=== PATIENT | male | born 1955 | race Caucasian/White ===

== ENCOUNTER 2019-09-12 10:31 | Emergency (ER) | payer MEDICARE ==
[~2019-09-12] VITALS: Ht 180 cm; Wt 92.5 kg
[2019-09-12] MEDS ORDERED: HYDR25TA4 (10:52)
[2019-09-12] MEDS ORDERED: PRD10T (10:52)
[2019-09-12] MEDS ORDERED: LOVA20TA2 (10:52)
[2019-09-12] MEDS ORDERED: QUIN40TA14 (10:52)
--- OUTSIDE RECORDS SUMMARY | 2019-09-12 10:53 | XMS REPORT ---
Author Author John ADRIAN Organization [facility] Address [address] [place] [address] Care Team Providers Care Insurance Operations Rep Name Role Phone LUZ MARIA ADRIAN Unavailable PROBLEMS Type Condition ICD9-CM Code [id number] Code Onset Dates Condition S tatus SNOMED Code Problem Pure hypercholesterolemia E78.00 Acti ve [id number] Problem Benign essential HTN I10 Active [id number] ALLERGIES Substance Reaction Event Type Date Status Terbinafine Unknown Drug Allergy Apr, Active ENCOUNTERS Encounter Location Date Diagnosis [address] [address] Apr, Benign essential HTN I10 and Pure hyperc holesterolemia E78.00 [place] [address] [address] [facility] [id number] [address] [place] [phone] Apr, [address] [address] Apr, Benign essential HTN I10 [place] [address] [facility] [id number] [address] [place] [phone] Sep, 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.4 [place] [address] [address] [facility] [id number] [address] [place] [phone] Aug, Physical exam Z00.00 [facility] [address] [id number] [address] [place] [phone] Aug, Physical examination of empl oyee V70.5 [place] [address] [facility] [id number] [address] [place] [phone] Sep, IMMUNIZATIONS No Known Immunizations SOCIAL HISTORY Never Assessed REASON FOR VISIT etl database developer PLAN OF CARE VITAL SIGNS MEDICATIONS Medication Instructions Dosage Frequency Start Date End Date Duration S tatus Lovastatin 20 MG Orally Once a day 1 tablet with a meal 24h Active Aspirin 81 MG Orally Once a day 1 tablet 24h Active Loprox 0.77 % Externally Twice a day 1 application to affected area 12h Active Hydrochlorothiazide 25 MG TAKE 1 TABLET BY MOUTH ONCE DAILY. 30 Active Vitamin E 100 UNIT Orally Once a day 1 capsule 24h 3 0 day(s) Active Vitamin B Complex - as directed Active Skelaxin 800 MG Orally Three times a day 1 tablet 8h 30 day(s) Active Viagra 100 MG Orally Once a day 1 tablet as needed 24h 30 day(s) Active Magnesium 300 MG Orally Once a day 1 capsule with a meal 24h 30 day(s) Active Vitamin B-12 1000 MCG Orally Once a day 1 tablet 24h 30 day(s) Active Quinapril HCl 40 MG Orally Once a day 1 tablet 24h Active RESULTS No Results PROCEDURES No Known procedures INSTRUCTIONS MEDICATIONS ADMINISTERED No Known Medications MEDICAL (GENERAL) HISTORY Type Description Date Medical History Hypertension Medical History Hypercholesteremia Medical History Insomnia Medical History Sleep apnea Medical History Depressive disorder Surgical History broken arm as a kid Surgical History back surgery Surgical History knee surgery-meniscus repair Hospitalization History surgeries
--- OUTSIDE RECORDS SUMMARY | 2019-09-12 10:53 | XMS REPORT | Continuity of Care Document ---
Author Organization Unknown Address Unknown Phone Unavailable Allergies There is no data. Medications There is no data. Problems There is no data. Procedures There is no data. Results Test Result Range CBC - 04/11/18 10:45 WHITE BLOOD CELL COUNT 8.2 Thousand/uL 3 .8-10.8 RED BLOOD CELL COUNT 5.64 Million/uL 4.2 0-5.80 HEMOGLOBIN 17.2 g/dL 13.2-17.1 HEMATOCRIT 50.8 % 38.5-50.0 MCV 90.1 fL 80.0-100.0 MCH 30.5 pg 27.0-33.0 MCHC 33.9 g/dL 32.0-36.0 RDW 13.5 % 11.0-15.0 PLATELET COUNT 238 Thousand/uL 140-400 MPV 9.7 fL 7.5-12.5 ABSOLUTE NEUTROPHILS 5707 cells/uL 1500- 7800 ABSOLUTE LYMPHOCYTES 1402 cells/uL 850-3 900 ABSOLUTE MONOCYTES 820 cells/uL 200-950 ABSOLUTE EOSINOPHILS 197 cells/uL 15-500 ABSOLUTE BASOPHILS 74 cells/uL 0-200 NEUTROPHILS 69.6 % NRG LYMPHOCYTES 17.1 % NRG MONOCYTES 10.0 % NRG EOSINOPHILS 2.4 % NRG BASOPHILS 0.9 % NRG LIPID PANEL - 10/25/18 08:14 CHOLESTEROL, TOTAL 143 mg/dL <200 HDL CHOLESTEROL 32 mg/dL >40 TRIGLYCERIDES 168 mg/dL <150 LDL-CHOLESTEROL 84 mg/dL (calc) NRG CHOL/HDLC RATIO 4.5 (calc) <5.0 NON HDL CHOLESTEROL 111 mg/dL (calc) <13 0 CMP - 10/25/18 08:14 GLUCOSE 103 mg/dL 65-99 UREA NITROGEN (BUN) 19 mg/dL 7-25 CREATININE 0.95 mg/dL 0.70-1.25 eGFR NON-AFR. UZBEK 84 mL/min/1.73m2 > OR = 60 eGFR 98 mL/min/1.73m2 > OR = 60 BUN/CREATININE RATIO NOT APPLICABLE (calc) 6-22 SODIUM 141 mmol/L 135-146 POTASSIUM 4.0 mmol/L 3.5-5.3 CHLORIDE 103 mmol/L 98-110 CARBON DIOXIDE 32 mmol/L 20-32 CALCIUM 9.7 mg/dL 8.6-10.3 PROTEIN, TOTAL 6.7 g/dL 6.1-8.1 ALBUMIN 4.1 g/dL 3.6-5.1 GLOBULIN 2.6 g/dL (calc) 1.9-3.7 ALBUMIN/GLOBULIN RATIO 1.6 (calc) 1.0-2. 5 BILIRUBIN, TOTAL 0.6 mg/dL 0.2-1.2 ALKALINE PHOSPHATASE 74 U/L 40-115 AST 19 U/L 10-35 ALT 21 U/L 9-46 CBC - 10/25/18 08:14 WHITE BLOOD CELL COUNT 6.4 Thousand/uL 3 .8-10.8 RED BLOOD CELL COUNT 5.32 Million/uL 4.2 0-5.80 HEMOGLOBIN 16.5 g/dL 13.2-17.1 HEMATOCRIT 48.5 % 38.5-50.0 MCV 91.2 fL 80.0-100.0 MCH 31.0 pg 27.0-33.0 MCHC 34.0 g/dL 32.0-36.0 RDW 13.8 % 11.0-15.0 PLATELET COUNT 214 Thousand/uL 140-400 MPV 9.2 fL 7.5-12.5 ABSOLUTE NEUTROPHILS 4000 cells/uL 1500- 7800 ABSOLUTE LYMPHOCYTES 1478 cells/uL 850-3 900 ABSOLUTE MONOCYTES 614 cells/uL 200-950 ABSOLUTE EOSINOPHILS 269 cells/uL 15-500 ABSOLUTE BASOPHILS 38 cells/uL 0-200 NEUTROPHILS 62.5 % NRG LYMPHOCYTES 23.1 % NRG MONOCYTES 9.6 % NRG EOSINOPHILS 4.2 % NRG BASOPHILS 0.6 % NRG CBC w/MANUAL DIFF - 04/08/19 08:40 WHITE BLOOD CELL COUNT 6.6 Thousand/uL 3 .8-10.8 RED BLOOD CELL COUNT 5.24 Million/uL 4.2 0-5.80 HEMOGLOBIN 15.0 g/dL 13.2-17.1 HEMATOCRIT 45.7 % 38.5-50.0 MCV 87.2 fL 80.0-100.0 MCH 28.6 pg 27.0-33.0 MCHC 32.8 g/dL 32.0-36.0 RDW 13.1 % 11.0-15.0 PLATELET COUNT 314 Thousand/uL 140-400 MPV 9.5 fL 7.5-12.5 ABSOLUTE NEUTROPHILS 4646 cells/uL 1500- 7800 ABSOLUTE LYMPHOCYTES 1168 cells/uL 850-3 900 ABSOLUTE MONOCYTES 482 cells/uL 200-950 ABSOLUTE EOSINOPHILS 271 cells/uL 15-500 ABSOLUTE BASOPHILS 33 cells/uL 0-200 NEUTROPHILS 70.4 % NRG LYMPHOCYTES 17.7 % NRG MONOCYTES 7.3 % NRG EOSINOPHILS 4.1 % NRG BASOPHILS 0.5 % NRG Encounters ACCT No. Visit Date/Time Discharge Status Pt. Type Provider Facility Loc./Unit Complaint [id number] 08/29/2019 14:00:00 08/29/2019 23:59:[address] [facility] Outpatient LUZ MARIA ADRIAN [facility] [id number] 04/08/2019 08:20:00 Document Registration [id number] 10/25/2018 08:20:00 Document Registration [id number] 04/11/2018 10:45:00 Document Registration
--- OUTSIDE RECORDS SUMMARY | 2019-09-12 10:53 | XMS REPORT ---
Author John Leonard [facility] eClinicalWorks Address Unknown Phone Unavailable Care Team Providers Care Product Marketing Programs Manager Name Role Phone BRENDA MORRIS CP Unavailable Allergies, Adverse Reactions, Alerts Substance Reaction Event Type N.K.D.A. Info Not Available Non Drug Allergy Problems Problem Type Condition Code Onset Dates Condition Statu s Assessment Physical exam Z00.00 Active Problem Physical exam Z00.00 Active Medications Medication Code System Code Instructions Start Date End Date Status Dosage Lovastatin [facility] [address]-41 10 MG Orally Once a day 1 tablet with a meal Quinapril HCl [facility] [address]-22 20 MG Orally Once a day 1 tablet Aspirin [facility] [address]-72 81 MG Orally Once a day 1 tablet Procedures Procedure Coding System Code Date Office Visit, Est Pt., Level 4 CPT-4 33449 J [facility] 2015 URINALYSIS, AUTO, W/O SCOPE CPT-4 50806 August 28, 2015 Vital Signs Date/Time: August 28, 2015 Cardiac Monitoring Heart Rate 80 bpm Weight 198 lbs Height 71 in Blood Pressure Diastolic 84 mmHg Blood Pressure Systolic 110 mmHg Results No Known Results Summary Purpose eClinicalWorks Submission
--- NOTE | 2019-09-12 11:01 | ED Integumentary General ---
General Chief Complaint: Skin/Wound Problems Stated Complaint: LACERATION LOWER L LEG Nursing Triage Note: PT PRESENTS TO ED WITH COMPLAINTS OF L KNEE LAC AFTER HITTING IT ON A GALVENIZED PIPE WHEN LOADING SOMETHING INTO A DUMBSTER. Source: patient Exam Limitations: no limitations (AARON MCKEON) History of Present Illness Date Seen by Provider: Sep 12, 2019 Time Seen by Provider: 10:45 Initial Comments John Wood is a 63 year old man who was seen today due to a laceration inferior to his L knee. He reports he was loading a dumpster into a truck when he cut his leg on a galvanized pipe that was sticking out of the dumpster. He reports this occurred about 30 minutes before he arrived, on arrival his wound was wrapped in rags from home by his daughter who is a nurse. He received the tetanus vaccine in July of 2018. He denies having any pain from the laceration. He takes a daily baby aspirin, denies any history of diabetes or immunocompromise. Denies any pain or numbness in his leg or anywhere else, denies having any fever or chills. Timing/Duration: just prior to arrival Severity: mild Location: extremities Possible Cause: other (trauma) Associated Symptoms: other (laceration) (AARON MCKEON) Allergies and Home Medications Allergies Coded Allergies: No Known Drug Allergies (Unverified , 09/12/19) Patient Home Medication List Home Medication List Reviewed: Yes (VIANEY HICKEY) Review of Systems Review of Systems Constitutional: No chills, No dizziness, No fever Skin: lesions (L knee) Psychiatric/Neurological: Denies Numbness, Denies Paresthesia, Denies Tingling (AARON MCKEON) EENTM: No ear discharge, No ear pain Cardiovascular: No chest pain, No Hx of Intervention, No palpitations Gastrointestinal: No abdominal pain, No nausea (VIANEY HICKEY) All Other Systems Reviewed Negative Unless Noted: Yes (VIANEY HICKEY) Past Oelwywk-Urzvvu-Cloujb Hx Patient Social History Alcohol Use: Denies Use Recreational Drug Use: No Smoking Status: Never a Smoker Recent Foreign Travel: No Contact w/Someone Who Travel: No Recent Infectious Disease Expo: No Recent Hopitalizations: No Physical Abuse: No Sexual Abuse: No Mistreated: No Fear: No (LINDA,AARON MED STUDENT) Alcohol Use: Denies Use Recreational Drug Use: No Smoking Status: Never a Smoker (VIANEY HICKEY) Immunizations Up To Date Tetanus Booster (TDap): Less than 5yrs (AARON MCKEON) Seasonal Allergies Seasonal Allergies: No (AARON MCKEON) Past Medical History Surgeries: Yes (NASAL, SLEEP APNEA, R KNEE) Respiratory: Yes Sleep Apnea Cardiac: Yes Hypertension Neurological: No Genitourinary: No Gastrointestinal: No Musculoskeletal: Yes (R KNEE TORN MENISCUS) Endocrine: No HEENT: No Cancer: No Psychosocial: No Integumentary: No Blood Disorders: No (AARON MCKEON) Physical Exam Vital Signs Vital Signs - First Documented 09/12/19 10:39 Temp 35.7 Pulse 120 Resp 18 B/P (MAP) 141/94 (110) Pulse Ox 99 O2 Delivery Room Air (VIANEY HICKEY) Vital Signs Capillary Refill : Less Than 3 Seconds (AARON MCKEON) General Appearance: WD/WN, no apparent distress HEENT: PERRL/EOMI Cardiovascular: regular rate, rhythm, no edema, no gallop, no JVD, no murmur Respiratory: chest non-tender, lungs clear, normal breath sounds, no respiratory distress, no accessory muscle use Extremities: non-tender; No normal inspection (L knee laceration); no pedal edema Neurologic/Psychiatric: no motor/sensory deficits, alert, normal mood/affect, oriented x 3 Skin: normal color, warm/dry, diaphoresis (had been outside working) Skin Problem Location: lower extremities Skin Problem Character: lesion (inferior to L knee) (AARON MCKEON) Extremities: No normal inspection (L knee laceration); other (6 cm linear lace ration with a nonviable skin flap. Approximately 1 cm gaped wide) (VIANEY HICKEY) Procedures/Interventions Wound Location: Lower Extremities Other Wound Location Left lateral proximal tibia Wound Length (cm): 6 Wound's Depth, Shape: linear, sub Q Wound Explored: no foreign body removed Irrigated w/ Saline (ccs): 250 Betadine Prep?: Yes (chlorhexidine) Anesthesia: Lidocaine w/ Epi (2%) Volume Anesthetic (ccs): 5 Wound Debrided: minimal (skin flap removed) Suture: Ethlion Suture Size: 2-0 Number of Sutures: 7 Layer Closure?: 1 Sterile Dressing Applied?: Yes Progress Wound was thoroughly cleaned with chlorhexidine and sterile saline. He was then infiltrated along the skin edges with 5 cc of 2% lidocaine with epinephrine. When he was determined to be anesthetized adequately we soaked the wound with Betadine and then re-scrubbed the wound base with chlorhexidine and sterile saline. We flushed it with sterile saline. We then reapproximated the skin edges with 7 simple, interrupted sutures. Patient was hemostatic and tolerated procedure well. Clean, sterile dressing was placed by nursing. (VIANEY HICKEY) Progress/Results/Core Measures Results/Orders My Orders Orders - VIANEY HICKEY Lidocaine/Epi 2% 1:100,000 (Xylocaine/Ep (09/12/19 11:15) (VIANEY HICKEY) Vital Signs/I&O 09/12/19 10:39 Temp 35.7 Pulse 120 Resp 18 B/P (MAP) 141/94 (110) Pulse Ox 99 O2 Delivery Room Air (VIANEY HICKEY) Blood Pressure Mean: 110 Progress Progress Note : Time: 11:32 Progress Note Tetanus vaccine is up-to-date. We did insert some lidocaine with epinephrine and after he is not we'll clean the wound thoroughly and reapproximate skin edges. I attest that I saw this patient alongside the medical student and agree with his documented history, physical exam and review of systems except as otherwise noted. (VIANEY HICKEY) Departure Impression Primary Impression: Leg laceration Qualified Codes: S81.812A - Laceration without foreign body, left lower leg, initial encounter Disposition: 01 HOME, SELF-CARE Condition: Stable Departure-Patient Inst. Decision time for Depature: 12:00 (VIANEY HICKEY) Referrals: LUZ MARIA ADRAIN MD (PCP/Family) Primary Care Physician Patient Instructions: Laceration Repair With Stitches (DC) Add. Discharge Instructions: Keep the wound clean with regular soap and water. It is okay to shower but do not submerse the wound until the sutures are out. Plan to return to the ER or your primary care doctor in about 10-14 days to have the sutures removed. Return to the doctor sooner if you notice redness and swelling, increased pain, purulent discharge from the wound, fever or nausea. Ice packs can be helpful for pain and swelling. Tylenol 1000 g every 8 hours as necessary for pain. Ibuprofen 800 mg every 8 hours as necessary for pain. All discharge instructions reviewed with patient and/or family. Voiced understanding. AARON MCKEON MED STUDENT Sep 12, 2019 11:01 VIANEY HICKEY Sep 12, 2019 11:32
[2019-09-12] MEDS ORDERED: LIDOCAINE/EPI 2% 1:100,00 (XYLOCAINE) 20 ML VIAL INJ ONE (11:15)
[2019-09-12 12:11] VITALS: BP 121/87
== END 2019-09-12 12:11 | disposition home or self-care (01) ==
LOC: EDUNIT# 10:31 → ER 10:34
DX: S81.012A Laceration without foreign body, left knee, initial encounter (principal); W22.8XXA Striking against or struck by other objects, initial encounter
CPT/HCPCS: 12032

== ENCOUNTER 2019-09-26 11:53 | Emergency (ER) | payer MEDICARE ==
[~2019-09-26] VITALS: Ht 180.3 cm; Wt 92.5 kg
[~2019-09-26 11:53] MED LIST: HYDR25TA4; LOVA20TA2; PRD10T; QUIN40TA14
[2019-09-26 12:08] VITALS: BP 136/81
--- NOTE | 2019-09-26 12:23 | NUR ---
ADELAIDE CALLED INTO Javid ANDRADE
== END 2019-09-26 12:18 | disposition home or self-care (01) ==
LOC: EDUNIT# 11:53 → ER 11:55
DX: S81.812D Laceration without foreign body, left lower leg, subsequent encounter (principal); X58.XXXD Exposure to other specified factors, subsequent encounter

== ENCOUNTER → 2020-06-22 | Outpatient (CLI) | payer MEDICARE ==
[~2020-06-22] VITALS: Ht 180.3 cm; Wt 90.9 kg
[~2020-06-22] MED LIST changes: +ASPI-1238 PO; -HYDR25TA4; +HYDR25TA4 PO; -LOVA20TA2; +LOVA20TA2 PO; +MELA3CAP2 PO; +NAPR1TAB25 PO; -QUIN40TA14; +QUIN40TA14 PO
== END | disposition home or self-care (01) ==
LOC: PREOP 05:43
PROVIDERS: ATTEND Surgery
DX: Z01.818 Encounter for other preprocedural examination (principal)

== ENCOUNTER 2020-06-29 09:59 | Day surgery (SDC) | payer MEDICARE ==
[~2020-06-29] VITALS: Ht 180.3 cm; Wt 90.9 kg
[2020-06-29] MEDS ORDERED: LACTATED RINGERS 1,000 ML IV STA (10:10)
[2020-06-29] MEDS ORDERED: LACTATED RINGERS 1,000 ML IV ONE (10:13)
[2020-06-29] MEDS ORDERED: PROPOFOL INJECTION 50 ML IV ONE (10:43)
--- NOTE | 2020-06-29 10:51 | Progress Note-Pre Operative ---
Pre-Operative Progress Note H&P Reviewed The H&P was reviewed, patient examined and no changes noted. Time Seen by Provider: 10:48 Date H&P Reviewed: June 29, 2020 Time H&P Reviewed: 10:48 Pre-Operative Diagnosis: screening colon BRITNEY VICK DO June 29, 2020 10:51
[2020-06-29 11:41] VITALS: BP 118/68
--- NOTE | 2020-06-29 11:42 | Anesthesia-General Post-Op ---
MAC Patient Condition Mental Status/LOC: Same as Preop Cardiovascular: Satisfactory Nausea/Vomiting: Absent Respiratory: Satisfactory Pain: Controlled Complications: Absent Post Op Complications Complications None Follow Up Care/Instructions Patient Instructions None needed. Anesthesiology Discharge Order Discharge Order Patient is doing well, no complaints, stable vital signs, no apparent adverse anesthesia problems. No complications reported per nursing. GEE SILVER CRNA June 29, 2020 11:42
[2020-06-29 11:45] VITALS: BP 127/73
--- NOTE | 2020-06-29 11:46 | Progress Note-Post Operative ---
Post-Operative Progess Note Surgeon (s)/Senior Principal Architect (s) Surgeon BRITNEY VICK DO Senior Principal Architect: none Pre-Operative Diagnosis screening colon Post-Operative Diagnosis Polyps Colitis Diverticula int hemorrhoids Procedure & Operative Findings Date of Procedure 06/29/20 Procedure Performed/Findings PROCEDURE NOTE: After informed consent was obtained, the patient was brought to the endoscopy suite, placed in bed in left lateral decubitus position. He was administered IV sedation by the CELL MAKER who then monitored him vitals the entire time, heart rate, blood pressure and pulse ox, started the colonoscopy. On the way in, noted what looked like colitis (possibly from prep), Diverticula and maybe diverticulitis. Took a picture of this, then pushed all the way to the cecum about 150 cm in, took a picture of the appendiceal orifice and noted the ileo-cecal valve. Then slowly withdrew the scope insufflating to look circumferentially at the guerrero looking at the cecum, up the ascending colon to the hepatic flexure, down the transverse colon, to the splenic flexure, into the descending colon down. In the descending colon saw a polyp and did a hot snare; chino to get the entire polyp. Then down into the sigmoid; again saw what looked like colitis. Finally into the rectum, retroflexed in the rectal vault, saw another polyp and some minimal internal hemorrhoids and took a picture.Then did another snare polypectomy of the rectal polyp. Removed the scope. The patient tolerated the procedure. He was recovered in endoscopy suite. Anesthesia Type IV sedation by CELL MAKER Estimated Blood Loss Estimated blood loss (mL): scant Specimens/Packing Specimens Removed desc colon polyp rectal polyp BRITNEY VICK DO June 29, 2020 11:46
--- NOTE | 2020-06-29 11:47 | Endoscopy Discharge Instruct ---
Endo Procedure/Findings Findings 1.: Polyp 2.: Diverticulitis, Diverticulosis 3.: Colitis 4.: Internal Hemorrhoids Discharge Instructions - Activity: You might feel a little sleepy until tomorrow. This is due to the medicine you received to relax you. Until tomorrow, you should: NOT drive a car, operate machinery or power tools. NOT drink any alcoholic beverages. NOT make any important decisions or sign importortant papers. Do not return to work until tomorrow, unless otherwise instructed. Resume previous activities tomorrow. Diet: Start by taking liquids. If you tolerate liquids, advance to solid food. 1.: Colonscopy in 3 years Notify Physician - If you experience excessive bleeding, unusual abdominal pain, fever, or chest pain, contact your doctor immediately. BRITNEY VICK DO June 29, 2020 11:47
[2020-06-29 11:50] VITALS: BP 128/75
[2020-06-29 11:55] VITALS: BP_SYST 128; BP_SYST 142; BP_DIAS 75; BP_DIAS 92
[2020-06-29 12:25] VITALS: BP 146/94
[2020-06-29 12:30] VITALS: BP 146/94
== END 2020-06-29 12:30 | disposition home or self-care (01) ==
LOC: ENDO 09:59
PROVIDERS: ATTEND Surgery
DX: K51.40 Inflammatory polyps of colon without complications (principal); K62.1 Rectal polyp; K57.30 Diverticulosis of large intestine without perforation or abscess without bleeding; K52.9 Noninfective gastroenteritis and colitis, unspecified; R15.9 Full incontinence of feces; K64.8 Other hemorrhoids; I10 Essential (primary) hypertension; K57.92 Diverticulitis of intestine, part unspecified, without perforation or abscess without bleeding; Z79.82 Long term (current) use of aspirin; Z79.899 Other long term (current) drug therapy; Z79.2 Long term (current) use of antibiotics
CPT/HCPCS: 88305

== ENCOUNTER → 2021-07-23 | Outpatient (CLI) | payer MEDICARE ==
[~2021-07-23] VITALS: Ht 180.3 cm; Wt 95.2 kg
[~2021-07-23] MED LIST changes: -QUIN40TA14 PO; +QUIN40TA34 PO
== END | disposition home or self-care (01) ==
LOC: PREOP 05:31
PROVIDERS: ATTEND Surgery
DX: Z01.818 Encounter for other preprocedural examination (principal)

== ENCOUNTER 2021-07-30 06:55 | Day surgery (SDC) | payer MEDICARE ==
[2021-07-30] VITALS (11 sets, daily range): BP systolic 111–146; BP diastolic 73–93
[~2021-07-30] VITALS: Ht 180.3 cm; Wt 95.2 kg
[2021-07-30] MEDS ORDERED: ceFAZolin 2 GM IV Premixed 50 ML IV ONE (07:15)
[2021-07-30] MEDS ORDERED: LACTATED RINGERS 1,000 ML IV PRN (07:15)
[2021-07-30] MEDS ORDERED: fentaNYL INJ 100 MCG/2 ML AMP ONE (07:50)
[2021-07-30] MEDS ORDERED: MIDAZOLAM 2 MG/2 ML (VERSED) VIAL ONE (07:50)
[2021-07-30] MEDS ORDERED: ONDANSETRON 4 MG/2 ML (SDV) Z0FRAN ONE (07:50)
[2021-07-30] MEDS ORDERED: LIDOCAINE PF 2% 5 ML (XYLOCAINE) VIAL ONE (07:50)
[2021-07-30] MEDS ORDERED: proPOfol 200 MG/20 ML (DIPRIVAN) VIAL IV ONE (07:50)
[2021-07-30] MEDS ORDERED: ceFAZolin 2 GM IV Premixed 50 ML ONE (08:11)
[2021-07-30] MEDS ORDERED: BUP/EPI 0.5% 1:200,000 (MARCAINE) 10ML VIAL IJ ONE (08:33)
--- NOTE | 2021-07-30 09:22 | Progress Note-Pre Operative ---
Pre-Operative Progress Note H&P Reviewed The H&P was reviewed, patient examined and no changes noted. Time Seen by Provider: 09:14 Date H&P Reviewed: Jul 30, 2021 Time H&P Reviewed: 09:14 Pre-Operative Diagnosis: Left shoulder/back mass, site marked BRITNEY VICK DO Jul 30, 2021 09:22
[2021-07-30] MEDS ORDERED: SEVOFLURANE (ULTANE) 15 ML INHAL SOLN ONE (10:01)
[2021-07-30] MEDS ORDERED: ONDANSETRON 4 MG/2 ML (SDV) Z0FRAN IVP PRN (10:30)
[2021-07-30] MEDS ORDERED: morphine INJ 10 MG/ML 1ML (SYR OR VIAL) IVP ONE (10:30)
--- NOTE | 2021-07-30 10:55 | Progress Note-Post Operative ---
Post-Operative Progess Note Surgeon (s)/Director Of Event Marketing (s) Surgeon BRITNEY VICK DO Director Of Event Marketing: none Pre-Operative Diagnosis Left shoulder/back mass, site marked Post-Operative Diagnosis same with purulent fluid Procedure & Operative Findings Date of Procedure 07/30/21 Procedure Performed/Findings 1) Excision of left shoulder/back mass appx 6.7 cm incision down to the fascia 2) Advancement flaps Anesthesia Type LMA Estimated Blood Loss Estimated blood loss (mL): less than 10ml Specimens/Packing Specimens Removed back mass and portion of skin BRITNEY VICK DO Jul 30, 2021 10:55
[2021-07-30] MEDS ORDERED: ACHD5005 PO (10:56)
--- NOTE | 2021-07-30 10:57 | Discharge Inst-Surgical ---
Discharge Inst-Surgical Depart Medication/Instructions New, Converted or Re-Newed RX: Transmitted to Pharmacy Patient Instructions Follow up Appt: Make appointment for 1 week. [phone] Instructions: No lifting greater than 20 pounds. No strenuous activity. May shower in 24 hours, no tub bath or soaking. Use incentive spirometer at home as directed. No Smoking Skin/Wound Care: May remove bandages in am. You need to leave the Dermabond on incision it will fall off on it's own. Symptoms to Report: Appetite Changes, Extremity Discoloration, Numbness/Tingling, Swelling Increased, Bleeding Excessive, Eyesight Changes, Pain Increased, Urine Color Change, Constipation(Persistent), Fever over 101 degree F, Pain/Pressure in chest, Urinating Difficulty, Cough Up/Vomit Blood, Heart Beat Irreg/Pounding, Pain/Pressure in jaw, Cramps in feet or legs, Lightheadedness, Pain/Pressure in shoulder, Diarrhea(Persistent), Memory Changes Suddenly, Questions/Concerns, Weight gain consecutive days, Dizziness/Fainting, Nausea/Vomiting, Shortness of Breath, Weight gain over 2 pounds If questions or concerns contact your physician Or seek help at emergency department. Activity Activity as Tolerated: Yes Activity Instructions: Avoid Stress to Incision Driving Instructions: No Driving/Refer to Dr. Demarco Discharge Diet: No Restrictions Diet After 24 Hours: Clear Liquid if Nauseous If Any Problems/Questions/Issu: Contact Your Physician, Go to Emergency Room Skin/Wound Care Infection Signs and Symptoms: Increased Redness, Foul Odor of Wound, Increased Drainage, Skin Itchy or Has a Rash, Increased Swelling, Temperature Above 101 F Bathing Instructions: Shower Stitches/[place]/Dermabond Dis: Care of Stitches BRITNEY VICK DO Jul 30, 2021 10:57
--- NOTE | 2021-07-30 11:33 | Anesthesia-General Post-Op ---
General Patient Condition Mental Status/LOC: Same as Preop Cardiovascular: Satisfactory Nausea/Vomiting: Absent Respiratory: Satisfactory Pain: Controlled Complications: Absent Post Op Complications Complications None Follow Up Care/Instructions Patient Instructions None needed. Anesthesia/Patient Condition Patient Condition Patient is doing well, no complaints, stable vital signs, no apparent adverse anesthesia problems. No complications reported per nursing. TING HARMON DO Jul 30, 2021 11:33
--- NOTE | 2021-07-31 02:35 | OPERATIVE REPORT ---
DATE OF SERVICE: 07/30/2021 PREOPERATIVE DIAGNOSIS: Left shoulder/back mass. POSTOPERATIVE DIAGNOSIS: Left shoulder/back mass, pending pathology. PROCEDURES: 1. Excision of shoulder and back mass 6.7 cm incision down to the fascia. 2. Creation of advancement flaps. SURGEON: Billy Calloway DO. YARDAGE TUFTING MACHINE OPERATOR: None. ANESTHESIA: LMA. SPECIMEN: Left shoulder/back mass sent to pathology. BLOOD LOSS: Less than 10 mL. FLUIDS: Per anesthesia. POSTOPERATIVE CONDITION: Stable. INDICATION FOR PROCEDURE: The patient is a 65-year-old male who has a mass on his left posterior shoulder/back. It has been bothering him, getting bigger, skin with inflammation and he wanted to get this removed. FINDINGS: The patient had a back mass. It was down to the fascia, made an elliptical incision about 6.7 x 1.8 cm, removing some skin as well to be able to get all of this mass and the guerrero of the mass, most likely with an infected sebaceous cyst. PROCEDURE NOTE: After informed consent was obtained, the patient was brought to the operating room, placed on the operating table in right lateral decubitus position. He was sterilely prepped and draped in normal fashion. Local lidocaine was used to infiltrate the skin around this area, then made an elliptical incision with a #15 blade, carried down through the skin into subcutaneous tissue, this measured about 6.7 cm long x about 1.8 cm wide, going down through the skin into subcutaneous tissue, then deepened down to subcutaneous tissue with Bovie electrocautery. The incision was mostly cephalad caudad. The mass kind of went diagonally across this, so had to go out a little bit in the lateral direction to the left side to get a little bit more of this mass, dissect around with Bovie electrocautery. This dissection was carried all the way down to the fascia just above the muscle to remove this mass completely and get all of the wall. Once we were able to get completely removed, copiously irrigated with normal saline. Hemostasis was obtained. There was no infection or areas of infection or necrosis on the inside. Created advancement flaps on either side laterally and medially about 1.5 cm to be able to bring the skin together, then closed this with a 5 vertical mattress sutures and 6 interrupted simple sutures of 2-0 Prolene. Area was cleaned and dried, pressure dressing placed. The patient then transferred to recovery room in stable condition. Sponge, instrument and needle count correct at the end of the case. Job ID: [id number] DocumentID: [id number] Dictated Date: 07/30/2021 17:32:00 Managing Principal Date: 07/31/2021 02:35:30 Dictated By: BILLY CALLOWAY DO
== END 2021-07-30 11:55 | disposition home or self-care (01) ==
LOC: SDC 06:55
PROVIDERS: ATTEND Surgery
DX: L02.212 Cutaneous abscess of back [any part, except buttock and flank] (principal)
CPT/HCPCS: 87081